=== PATIENT | male | born 1965 | race Caucasian/White ===

== ENCOUNTER 2022-09-13 12:18 | Emergency (ER) | payer OTHER ==
[2022-09-13 12:41] VITALS: PULSE 112; RESP 18; TEMP 98.8; BMI 31.1
[2022-09-13 14:35] VITALS: BP 120/81
[2022-09-13] MEDS ORDERED: ACETAMINOPHEN 650 MG/20.3 ML ORAL SOLUTION (CUPS) PO ONE (14:39)
[2022-09-13] MEDS ORDERED: ONDANSETRON *ODT* 4 MG TABLET SL ONE (14:39)
[2022-09-13] MEDS ORDERED: ACETAMINOPHEN 325 MG TABLET (FP) ONE (14:41)
[2022-09-13] MEDS ORDERED: ONDANSETRON *ODT* 4 MG TABLET ONE ×2 (14:41→14:42)
== END 2022-09-13 15:25 | disposition home or self-care (01) ==
LOC: JERFT 12:18
DX: R11.2 Nausea with vomiting, unspecified (principal); R19.7 Diarrhea, unspecified; R21 Rash and other nonspecific skin eruption; L29.9 Pruritus, unspecified; A05.9 Bacterial foodborne intoxication, unspecified; T78.40XA Allergy, unspecified, initial encounter; E86.0 Dehydration; G44.209 Tension-type headache, unspecified, not intractable
CPT/HCPCS: 99283-25; Q0162